=== PATIENT | female | born 1970 | race Caucasian/White ===

== ENCOUNTER → 2017-06-11 | Outpatient (REF) | payer BC, OTHER | LOC: M LAB REF 14:44 | PROVIDERS: ATTEND Otolaryngology | DX: D37.09 Neoplasm of uncertain behavior of other specified sites of the oral cavity (principal) ==

== ENCOUNTER → 2019-01-28 | Outpatient (REF) | payer BC, OTHER | LOC: M LAB REF 17:09 | PROVIDERS: ATTEND Family Medicine | DX: Z12.4 Encounter for screening for malignant neoplasm of cervix (principal) ==